=== PATIENT | male | born 1995 | race Caucasian/White ===

== ENCOUNTER 2021-12-11 15:18 | Emergency (ER) | payer MEDICAID ==
[~2021-12-11] VITALS: Ht 172.7 cm; Wt 61.0 kg
[2021-12-11 15:41] VITALS: BP 122/75
[2021-12-11] MEDS ORDERED: FLUO15CR TP ×3 (20:43→20:45)
== END 2021-12-11 20:56 | disposition home or self-care (01) ==
LOC: ER 15:18
DX: L30.1 Dyshidrosis [pompholyx] (principal)
CPT/HCPCS: 99281